=== PATIENT | female | born 1940 | race Caucasian/White ===

== ENCOUNTER 2016-07-18 05:04 | Emergency (ER) | payer MEDICARE ==
[2016-07-18] MEDS ORDERED: IOPAMIDOL 300 (61%) 100 ML VIAL IV ONE (05:05)
[2016-07-18] MEDS ORDERED: MAALOX/LIDO2%VISC/SIMETHICONE 40 ML BOT ONE (05:17)
[2016-07-18 05:52] LABS: HEMOGLOBIN 14.9 gm/l (12.0-16.0)
[2016-07-18 05:53] LABS: ABSOLUTE NEUTROPHIL COUNT 9.2 K/mm3 (1.8-7.7); BASO % 0.3 % (0.2-1.0); EOS # 0.1 (0.0-0.5); HEMATOCRIT 44.8 % (37.0-47.0); IMM NEUT% 0.3 % (0-1); LYMPH # 0.8 (1.0-4.8); LYMPH % 7.6 % (15-45); MEAN CELL VOLUME 86.5 fl (81.0-99.0); MEAN CORPUSCULAR HEMOGLOBIN 28.8 pg (27.0-31.0); MEAN CORPUSCULAR HGB CONC 33.3 g/dl (33.0-37.0); MEAN PLATELET VOLUME 10.9 fl (7.4-10.4); MONO # 0.5 (0.0-0.8); MONO % 4.4 % (4-12); NEUT % 86.4 % (43-75); PLATELET COUNT 196 K/mm3 (130-400); RED CELL DISTRIBUTION WIDTH 12.7 % (11.5-14.5)
[2016-07-18] MEDS ORDERED: ONDANSETRON 4 MG/2ML 2 ML VIAL ONE (05:54)
[2016-07-18 06:07] LABS: INR 1.05
[2016-07-18 06:10] LABS: ALB/GLOB RATIO 1.7 (>1.0); ALBUMIN 4.4 gm/dL (3.5-5.7); CALCIUM 9.4 mg/dL (8.6-10.3)
--- NOTE | 2016-07-18 07:59 | US ---
Exam: Gallbladder ultrasound COMPARISON: None INDICATION: Epigastric pain. FINDINGS: Gallbladder ultrasound was obtained. The gallbladder is partially contracted. No gallstones are identified. There is no significant gallbladder wall thickening or pericholecystic fluid. There was a negative sonographic Rivas sign. Common bile duct normal is at the upper limits of normal measuring 6 mm. IMPRESSION: No evidence of acute cholecystitis; the gallbladder is partially contracted. Common bile duct is at the upper limits of normal measuring 6 mm. Report was uploaded to the EMR at 0756 hours 07/18/2016.
[2016-07-18] MEDS ORDERED: FAMOTIDINE 20 MG TABLET ONE (09:06)
--- NOTE | 2016-07-18 09:53 | CT ---
Exam: CT abdomen and pelvis with contrast COMPARISON: 05/03/2008 and gallbladder ultrasound 07/18/2016 INDICATION: Epigastric pain, right upper quadrant pain. TECHNIQUE: CT examination of the abdomen and pelvis was obtained following the administration 100 mL Isovue-300 intravenous contrast. FINDINGS: There are nondilated loops of fluid-filled small bowel. There is some fluid within the proximal colon; the remainder of the colon is decompressed. The stomach is moderately distended with an air-fluid level. There is some minor swirling of the mesentery as annotated on axial image 42 just to the right of the midline as well as within the left lower quadrant as annotated on axial image 60. There is no definite evidence of internal hernia within correlated against the coronal and sagittal reformations. There is no evidence of volvulus. There is no evidence of bowel obstruction. There is no free air or free intraperitoneal fluid. There is sigmoid diverticulosis without evidence of diverticulitis. Gallbladder is partially contracted. There is no significant intra or extrahepatic or ductal dilation. Minor nodularity of the left adrenal gland is noted and unchanged, compatible with benign etiology. Spleen is normal in size. 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 Kidneys otherwise unremarkable. Pancreas is within normal limits. Atheromatous but nonaneurysmal abdominal aorta and iliac arteries. Tiny fat-containing periumbilical hernia is similar. The uterus is absent. There is no adnexal mass. There is no pelvic lymphadenopathy or fluid collection. Urinary bladder unremarkable. There is minor atelectasis within the lung bases. No worrisome lytic or blastic osseous lesion is identified. Lumbosacral transitional vertebra is appreciated at S1. Hemangioma is again suggested at S1. There is grade 1 anterolisthesis of L4 and L5 related to overlying facet arthropathy. Degenerative disc disease is appreciated at the lumbosacral junction. Small sclerotic lesion is noted within the right side of the sacrum and was present retrospect on the 2008 exam and is therefore likely of no clinical concern. IMPRESSION: 1. No definite acute findings identified to explain patient's symptoms although there is an air-fluid level in the stomach, as well as nondilated loops of small bowel without discrete transition point. Correlate for signs and symptoms of an underlying enteritis. Early/developing bowel obstruction cannot be excluded although there is no definite evidence of obstruction at this time. 2. Numerable stable and subtle findings as discussed above. Report called to Dr. Jona Donald [id number] hours 07/18/2016.
== END 2016-07-18 08:08 | disposition home or self-care (01) ==
LOC: ED 05:04
DX: R10.13 Epigastric pain (principal); K92.0 Hematemesis; R11.0 Nausea; I10 Essential (primary) hypertension
CPT/HCPCS: 83690; 85025; 80053; 85610; 84484 ×2; 74177; 76705; 99284 ×2; 96374; 93005 ×2; A9270 ×2; J2405; Q9967